=== PATIENT | female | born 1995 ===

== ENCOUNTER → 2022-03-15 | Outpatient (CLI) | payer OTHER ==
[2022-03-17 14:12] LABS: CHLAMYDIA BY NAA Negative (Negative); GONOCOCCUS BY NAA Negative (Negative); TRICH VAG BY NAA Negative (Negative)
== END ==
LOC: LAB SHORT 16:18 → LAB 16:18
PROVIDERS: Family Medicine
DX: Z11.3 Encounter for screening for infections with a predominantly sexual mode of transmission (principal)
CPT/HCPCS: 87491; 87591; 87661

== ENCOUNTER → 2024-04-16 | Outpatient (CLI) | payer OTHER | LOC: LAB SHORT 12:07 → LAB 12:07 | PROVIDERS: Family Medicine | DX: Z01.419 Encounter for gynecological examination (general) (routine) without abnormal findings (principal) | CPT/HCPCS: G0123 ==